=== PATIENT | male | born 1985 | race Hispanic/Latino ===

== ENCOUNTER 2022-12-05 05:31 | Emergency (ER) | payer OTHER, MEDICAID, SELFPAY ==
[2022-12-05 05:55] VITALS: BP 140/65; PULSE 110; RESP 15; TEMP 36.6; O2SAT 97; BMI 35.9
--- NOTE | 2022-12-05 06:00 | DI.RAD.S_ITS ---
PROCEDURE: XR KNEE LT 3V INDICATIONS: pain TECHNIQUE: 3 views of the knee were acquired. COMPARISON: [facility], , KNEE 3V RIGHT, 06/14/2015, 13:19. FINDINGS: Bones: No fractures or dislocations. No suspicious bony lesions. Degenerative changes with narrowing of the lateral patellofemoral joint. Soft tissues: Large suprapatellar. IMPRESSION: 1. No fracture. 2. Large suprapatellar joint suggests possible internal derangement. Dictated by: Wes Barone M.D. on 12/05/2022 at 6:43 Approved by: Wes Barone M.D. on 12/05/2022 at 6:45
--- NOTE | 2022-12-05 06:40 | ED.EXTPRO ---
HPI - Extremity Problem General Chief complaint: Extremity Problem,Nontraumatic Stated complaint: Left knee pain. Hx of GOUT. Time Seen by Provider: 12/05/22 06:00 Source: patient Mode of arrival: Ambulatory History of Present Illness HPI Narrative: Patient is a 37-year-old male history of gout presenting today with left knee pain. He reports he was having a flare his hands previously typically takes allopurinol daily however when he has a flare he starts taking indomethacin. He started having pain in his left knee about a month ago. He reports that it was red he has been using crutches to get around. He thought was getting better but he said it but 40 and now having pain again. Pain is so bad that he can not sleep. He denies any fever. He reports that his hands feel better. He says that he had gout in his right knee and it was drained here however I am not see any report that he is ever been here before Related Data Previous Rx's Medication Instructions Recorded hydrocodone 5 mg-acetaminophen 325 0 tab PO Q6H PRN PRN #30 tabs 08/19/17 mg tablet hydrocodone 5 mg-acetaminophen 325 1 tab PO Q6H PRN pain #10 tabs 12/05/22 mg tablet Allergies Allergy/AdvReac Type Severity Reaction Status Date / Time No Known Drug Allergies Allergy Verified 12/05/22 05:55 Review of Systems Review of Systems ROS Unobtainable: All systems reviewed & are unremarkable except as noted in HPI and below Patient History Surgical History History of vasectomy (08/19/17) Social History Smoking Status: Never smoker Smoking Status: Never smoker alcohol intake frequency: a few times a week Substance Use Type: does not use Exam Initial Vital Signs Initial Vital Signs: Vital Signs Temperature 97.8 F 12/05/22 05:55 Pulse Rate 110 H 12/05/22 05:55 Respiratory Rate 15 12/05/22 05:55 Blood Pressure 140/65 12/05/22 05:55 Pulse Oximetry 97 12/05/22 05:55 Oxygen Delivery Method Room Air 12/05/22 05:55 GENERAL: Alert 37-year-old male appears uncomfortable CARDIOVASCULAR: peripheral pulses in tact, cap refill <2 sec RESPIRATORY: No respiratory distress, speaks in full sentences without difficulty EXTREMITIES: Normal range of motion, no clubbing or edema. Neurovascularly intact Left knee is mildly swollen no erythema NEUROLOGICAL: Cranial nerves II through XII grossly intact. Normal gait and speech. SKIN: Warm, dry, no petechiae, no rashes or lesions. Course Orders Ordered: Discontinued Medications Hydrocodone Bitart/Acetaminophen (Hydrocodone/Acet 5/325 Tablet) 1 tab PO NOW ONE Stop: 12/05/22 06:41 Last Admin: 12/05/22 06:48 Dose: 1 tab Documented By: [email or web address] Vital Signs Vital signs: Vital Signs - 8 hr 12/05/22 05:55 Temperature 97.8 F Pulse Rate 110 H Respiratory Rate 15 Blood Pressure 140/65 Pulse Oximetry 97 Oxygen Delivery Method Room Air MDM - Extremity (Nontraumatic) Imaging Data Extremity x-ray #1: Radiologist's Impression: PROCEDURE:? XR KNEE LT 3V ? INDICATIONS:? pain ? TECHNIQUE:? 3 views of the knee were acquired.? ? COMPARISON:? [facility], , KNEE 3V RIGHT, 06/14/2015, 13:19. ? FINDINGS:? ? Bones:? No fractures or dislocations.? No suspicious bony lesions.? Degenerative changes with narrowing of the lateral patellofemoral joint. ? Soft tissues:? Large suprapatellar. ? ? IMPRESSION:? 1. No fracture. 2. Large suprapatellar joint suggests possible internal derangement. ? ? Dictated by: Wes Barone M.D. on 12/05/2022 at 6:43 ? ? [facility] Narrative Medical decision making narrative: 37-year-old male who has a history of gout taking indomethacin and Tylenol. He then Re injured the knee. Sprain versus gout. He is afebrile it is mildly tender to touch. X-ray is negative for fracture but does have a large suprapatellar joint concerning for probable sprain. Not quite convinced it is gout. It is not significantly erythematous or swollen. He is given knee immobilizer, he already has crutches. I think he sprained it causing some increased inflammation. Discharge Plan Departure Patient Disposition: Home Clinical Impression: Left knee sprain Instructions: Knee Sprain Activity Restrictions/Additional Instructions: *You have been diagnosed with left knee sprain *What to do: At this time wear knee brace use crutches elevate and ice. You will likely need an MRI from your primary care provider. *Continue to take medications as directed [place] 1 tablet every 6 hours if needed for severe pain--> SENT TO [facility] Return 2 allopurinol daily as previously prescribed *Follow up with your primary care provider in 2-3 days or call [phone] *Return to ER if you should have increasing pain swelling redness or any new, worsening or concerning symptoms CONTROLLED SUBSTANCE DISCHARGE (Narcotoic/benzodiazepine/Flexeril/Phenergan) 1. You have been prescribed narcotic medications, it does have acetaminophen/Tylenol/paracetamol in it, DO NOT TAKE MORE THAN 4,00mg in 24 hours of Tylenol. TRAMADOL DOES NOT CONTAIN TYLENOL 2. Please understand that we cannot provide further refills of narcotics, benzodiazepines or controlled substances through the ED and her pain management will need to be through your provider. 3. While on these medications you cannot drive or operate heavy machinery. 4. You cannot sign legal documents or perform any duties such as this. 5. As long as you're taking opiate pain medications he should also be taking a stool softener such as Colace, Dulcolax, MiraLAX or prune juice, to help avoid constipation. Prescriptions: New hydrocodone-acetaminophen 5-325 mg tablet 1 tab PO Q6H PRN (Reason: pain) Qty: 10 0RF No Action hydrocodone-acetaminophen 5 MG/325 MG tablet 0 tab PO Q6H PRN PRNQty: 30 0RF Stand Alone Forms: Patient Portal/API
[2022-12-05] MEDS: HYDROCODONE/ACET 5/325 TABLET 1 TAB PO (06:48)
[2022-12-05 07:05] VITALS: PULSE 106
[2022-12-05 07:19] VITALS: BP 122/72; PULSE 109; O2SAT 96
== END 2022-12-05 07:24 | disposition home or self-care (01) ==
PROVIDERS: Emergency Provider Emergency Medicine
DX: S83.92XA Sprain of unspecified site of left knee, initial encounter (principal)
CPT/HCPCS: 73562; 99283